=== PATIENT | female | born 2000 | race Two or more races ===

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

== ENCOUNTER 2021-10-18 09:00 | Outpatient (CLI) | payer OTHER ==
[~2021-10-18 09:00] MED LIST changes: +MECLIZINE HCL25 M1 PO
== END 2021-10-18 09:10 | disposition home or self-care (01) ==
LOC: PPH VACUNA 09:00
PROVIDERS: ATTEND Emergency Medicine Pediatric Emergency Medicine
DX: Z23 Encounter for immunization (principal)